=== PATIENT | female | born 1970 | race Caucasian/White ===

== ENCOUNTER 2017-11-18 11:20 | Day surgery (SDC) | payer OTHER ==
[2017-11-18] MEDS ORDERED: Ringers Lactate 1,000 ML IV ONE (11:38)
[2017-11-18] MEDS ORDERED: MIDAZOLAM HCL 2 MG/2 ML INJ ONE (12:34)
[2017-11-18] MEDS ORDERED: LIDOCAINE 1% MPF 5 ML VIAL ONE (12:34)
[2017-11-18] MEDS ORDERED: PROPOFOL 200 MG/20 ML VIAL IV ONE (12:34)
[2017-11-18 13:30] VITALS: BP 124/54; TEMP 97.8; O2SAT 99
--- NOTE | 2017-11-19 00:28 | OP ---
Surgeon: Joe Pendleton MD Procedure Performed: Esophagogastroduodenoscopy with possible balloon dilation of the pyloric stenos is. Anesthesia: Monitored anesthesia care. Indication: Iron-deficiency anemia, dyspepsia, complexity high due to it being a therapeutic procedu re. Technique: After obtaining informed consent from the patient and explaining risks and complications which include, but are not limited to bleeding, infection, perforation, and anesthesia complication, the patient was placed in a left lateral position and sedation was given. From then on the scope was advanced into the mouth and carefully guided up till the fourth portion of the duodenum. After the completion of examination, all diagnostic and therapeutic maneuvers, the scope and equipment were wit hdrawn and procedure terminated in a safe manner. Findings: Esophagus: No gross lesion seen in the entire esophagus. Stomach: Multiple fundic type p olyps seen. These actually appeared to have enlarged from the last endoscopy. Some of them were ped unculated, given the anemia may require removal. However, due to the pyloric dilation, too high-risk maneuvers are not advisable. Biopsies taken from the polyps. Also biopsies taken from the gastric body and antrum. At the pyloric region stenosis was seen. This did not pose any difficulty for pass age of scope, through the scope balloon dilator was used and the pyloric stenosis was dilated from 1 1-12 to 13.5 mm while holding the pressure for 30 seconds at 13.5. After decompression, some heme wa s noted from the stenosis site indicating adequate dilation. Duodenum: The bulb, second, and third p ortion appeared normal. Small bowel biopsies taken to rule out celiac disease. Complications: None. Tolerance To Anesthesia: Excellent. Postoperative Diagnosis: 1.Multiple large gastric polyps. 2.Pyloric stenosis status post dilation. Plan: 1.Await pathology results. 2.We will consider stopping PPI and tapering it down. 3.Would also recommend repeating an endoscopy in a few weeks to start removing the polyps by lary lemus. 4.Follow up in the GI clinic in 2-3 weeks. US/MODL Voice ID: [id number] Report ID: [id number]
== END 2017-11-18 13:33 | disposition home or self-care (01) ==
LOC: OR 11:20
PROVIDERS: ATTEND Internal Medicine Gastroenterology
PROC: 0DB88ZX Excision of Small Intestine, Via Natural or Artificial Opening Endoscopic, Diagnostic (ICD-10-PCS; 2017-11-18)
PROC: 0D778ZZ Dilation of Stomach, Pylorus, Via Natural or Artificial Opening Endoscopic (ICD-10-PCS; 2017-11-18)
PROC: 0DB68ZX Excision of Stomach, Via Natural or Artificial Opening Endoscopic, Diagnostic (ICD-10-PCS; principal; 2017-11-18 12:30)
DX: K31.1 Adult hypertrophic pyloric stenosis (principal); K31.7 Polyp of stomach and duodenum; K29.50 Unspecified chronic gastritis without bleeding; D50.9 Iron deficiency anemia, unspecified; Z88.0 Allergy status to penicillin; Z88.1 Allergy status to other antibiotic agents
CPT/HCPCS: 82962; 88305; 88312; C1726; J2250

== ENCOUNTER 2017-12-16 09:48 | Day surgery (SDC) | payer OTHER ==
[2017-12-16] MEDS ORDERED: NA CHLORIDE 0.9% 1,000 ML ONE (09:54)
[2017-12-16] MEDS ORDERED: MIDAZOLAM HCL 2 MG/2 ML INJ ONE (11:10)
[2017-12-16] MEDS ORDERED: PROPOFOL 200 MG/20 ML VIAL IV ONE (11:10)
[2017-12-16 11:44] VITALS: TEMP 97.9
[2017-12-16 12:04] VITALS: BP 119/77; O2SAT 99
--- NOTE | 2017-12-16 12:14 | OP ---
Date of Procedure: 12/16/2017 Surgeon: Valery Sandoval MD A 47-year-old female. Procedure Performed: 1.Esophagogastroduodenoscopy. 2.Biopsy from duodenal polypoid lesion. Anesthesia: By Department of Anesthesia. Indication: Large gastric polyp, anemia, and suspected GI bleeding. Premedication: Per Anesthesia. Complexity: Moderate. Tolerance Of Sedation: Excellent. Procedure In Detail: The procedure, possible complications, and alternatives including, but not limi rodolfo to the possibility of bleeding, perforation, tear, infection, sepsis, need for surgery, need for blood transfusion, anesthesia related problems including rare fatality explained to the patient. Inf ormed consent was obtained. The patient was placed in left lateral position. Scope was inserted. E sophageal mucosa in the proximal, mid, and distal aspect appeared to be within normal range. EG junc tion is normal. In the stomach, numerous polyps were noted predominantly in the fundus. The polyps ranged from 0.5 c m to 1.5 cm. However no active or passive bleeding or no stigmata of direct or indirect bleeding not ed anywhere in the stomach. These polyps appeared to be hyperplastic and appears to be quite benign in nature. Also no heme was noted in the stomach. Repeated examination revealed the same finding. Duodenal, pyloric orifice, and duodenal bulb were intubated; however, in the duodenal bulb, there wer e 2 erythematous areas of polypoid lesion that has been biopsied. Again no active or passive bleedin g noted, just erythematous polyps. Duodenal angle, duodenal part 2 appeared to be within normal rang e. Having done the above procedure in a safe, diligent, and satisfactory manner, endoscope and rest of t he endoscopic accessories were removed. The patient's oropharyngeal area was cleaned out in a respec tful manner. The patient has been sent in excellent condition to postop recovery, from there to the floor. Impression: 1.Gastric polyp that does not show any direct or indirect evidence of bleeding. 2.Duodenal polyps that were erythematous have been biopsied. Plan: 1.We will order small bowel follow-through unless has been done. 2.If small bowel follow-through is negative, capsule endoscopy will be ordered provided colonoscopy is negative. 3.She may benefit from a proton pump inhibitor therapy on a chronic basis. 4.Follow up in office with biopsy. Complications: None. The patient tolerated the procedure well. Disposition: After full recovery under anesthesia. She has been sent home. CYNTHIA/SAUL Voice ID: [id number] Report ID: [id number]
== END 2017-12-16 12:11 | disposition home health service (06) ==
LOC: OR 09:48
PROVIDERS: ATTEND Internal Medicine Gastroenterology
PROC: 0DB98ZX Excision of Duodenum, Via Natural or Artificial Opening Endoscopic, Diagnostic (ICD-10-PCS; principal; 2017-12-16 12:00)
DX: K31.7 Polyp of stomach and duodenum (principal); D50.9 Iron deficiency anemia, unspecified; K21.9 Gastro-esophageal reflux disease without esophagitis; I10 Essential (primary) hypertension; E11.9 Type 2 diabetes mellitus without complications; E07.9 Disorder of thyroid, unspecified; M19.90 Unspecified osteoarthritis, unspecified site; Z88.0 Allergy status to penicillin; Z88.1 Allergy status to other antibiotic agents
CPT/HCPCS: 82962; 88305; J2250; J7030

== ENCOUNTER 2018-03-24 10:55 | Day surgery (SDC) | payer OTHER ==
[2018-03-24] MEDS ORDERED: NA CHLORIDE 0.9% 1,000 ML ONE (11:48)
[2018-03-24 11:54] VITALS: O2SAT 100
[2018-03-24] MEDS ORDERED: MIDAZOLAM HCL 2 MG/2 ML INJ ONE (12:35)
[2018-03-24] MEDS ORDERED: PROPOFOL 200 MG/20 ML VIAL IV ONE ×2 (13:36)
[2018-03-24] MEDS ORDERED: LIDOCAINE 1% MPF 5 ML VIAL ONE (13:36)
[2018-03-24 14:31] VITALS: BP 121/55; TEMP 97.2
--- NOTE | 2018-03-25 00:37 | OP ---
Surgeon: Joe Pendleton MD Procedure To Be Performed: Esophagogastroduodenoscopy. Performing Physician: Joe Pendleton M.D. 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 Plan For Anesthesia: Monitored anesthesia care. Complexity: High due to probable therapeutic procedure. Technique: After obtaining informed consent from the patient and explaining risks and complications which include, but are not limited to bleeding, infection, perforation, and anesthesia complication, the patient was placed in a left lateral position and sedation was given. From then on, the scope wa s advanced into the mouth and carefully guided up until the fourth portion of the duodenum. After th e completion of examination and all therapeutic maneuvers, the scope and equipment were withdrawn, an d procedure terminated in a safe manner. Findings: Esophagus, no gross lesion seen in the entire esophagus. Stomach, numerous polyps which w ere fundic gland type were seen in the body. These range from size [address] up to 1.5 cm. T he largest 2 were identified and were resected with snare completely. Duodenum and the bulb, a few s mall AVMs were seen, also a small AVM seen in the second portion of the duodenum. These were ablated with APC. Complications: None. Tolerance To Anesthesia: Excellent. Postoperative Diagnoses: Gastric polyps, duodenal arteriovenous malformations, mild pyloric stenosis that did not require any dilation at this time. Plan: 1.Await pathology results. 2.May benefit from staged polypectomy in 6 to 8 weeks. We will see how her anemia responds. Follow up in the GI clinic. US/MODL Voice ID: [id number] Report ID: [id number]
== END 2018-03-24 14:44 | disposition home or self-care (01) ==
LOC: OR 10:55
PROVIDERS: ATTEND Internal Medicine Gastroenterology
PROC: 0D598ZZ Destruction of Duodenum, Via Natural or Artificial Opening Endoscopic (ICD-10-PCS; 2018-03-24)
PROC: 0DB68ZX Excision of Stomach, Via Natural or Artificial Opening Endoscopic, Diagnostic (ICD-10-PCS; principal; 2018-03-24 13:15)
DX: R10.32 Left lower quadrant pain (principal); K64.8 Other hemorrhoids; K31.1 Adult hypertrophic pyloric stenosis; D50.9 Iron deficiency anemia, unspecified; K31.819 Angiodysplasia of stomach and duodenum without bleeding; E11.9 Type 2 diabetes mellitus without complications; E03.9 Hypothyroidism, unspecified; Z88.1 Allergy status to other antibiotic agents; Z88.0 Allergy status to penicillin; E66.01 Morbid (severe) obesity due to excess calories; Z68.42 Body mass index [BMI] 45.0-49.9, adult; M54.9 Dorsalgia, unspecified; G89.29 Other chronic pain; K31.7 Polyp of stomach and duodenum
CPT/HCPCS: 82962; 88305; J2250; J7030

== ENCOUNTER 2019-05-29 07:18 | Emergency (ER) | payer OTHER ==
[2019-05-29] MEDS ORDERED: ONDANSETRON 4 MG/2 ML VIAL ONE (07:44)
[2019-05-29] MEDS ORDERED: DICYCLOMINE HCL 10 MG CAP ONE (07:44)
[2019-05-29] MEDS ORDERED: NA CHLORIDE 0.9% 1,000 ML ONE (07:45)
[2019-05-29 08:15] LABS: Absolute Lymphocytes (CBC) 0.5 K/uL (0.7-4.9); Basophils % 0.2 % (0-1.3); Lymphocytes % 6.4 % (15.3-44.8); MPV 9.1 fL (7.6-11.3); RBC Red Blood Cell Count 5.23 M/uL (3.86-4.86)
[2019-05-29 08:20] LABS: Albumin 3.5 g/dL (3.4-5.0); Bilirubin Direct 0.2 mg/dL (0-0.2); Bilirubin Total 0.6 mg/dL (0.2-1.0); Potassium 3.3 mmol/L (3.5-5.1); Protein, Total 7.2 g/dL (6.4-8.2)
[2019-05-29] MEDS ORDERED: MORPHINE 4 MG/ML SYR ONE (08:30)
[2019-05-29] MEDS ORDERED: PANTOPRAZOLE 40 MG INJ ONE (08:30)
[2019-05-29 09:08] LABS: Blood Morphology Comment NOT SEEN (NOT SEEN); Platelet Estimate ADEQ
--- NOTE | 2019-05-29 09:15 | RAD REPORT ---
EXAM DESCRIPTION: CT - Abdomen Pelvis W Contrast - 05/29/2019 8:47 am CLINICAL HISTORY: Abdominal pain COMPARISON: 2013 TECHNIQUE: Computed axial tomography of the abdomen pelvis was obtained. 100 cc Isovue-300 was admin istered intravenously. Oral contrast was not requested which limits evaluation of bowel. All CT scans are performed using dose optimization technique as appropriate and may include automated exposure control or mA/KV adjustment according to patient size. FINDINGS: Mild fatty liver Cholecystectomy Spleen, pancreas, adrenal and kidneys appear unremarkable. There is no evidence of diverticulitis. Normal appendix Tiny umbilical hernia. The wall of several loops of jejunum appear mildly thickened Spondylosis involves lumbar spine IMPRESSION: Mild thickening of the wall of several loops of jejunum may indicate an enteritis
--- NOTE | 2019-05-29 09:33 | EDPHYS ---
Physician Documentation [facility] Name: Staci Paulino Age: 48 yrs Sex: Female : 1970 Arrival Date: 05/29/2019 Time: 07:20 Bed 6 Private MD: Morgan Cornelius V ED Physician Farhat Isaacs HPI: 05/29 07:35 This 48 yrs old Female presents to ER via Unassigned with complaints of kb Abdominal Pain, Vomiting/Diarrhea. 07:35 The patient presents with abdominal pain in the upper abdomen. Onset: The kb symptoms/episode began/occurred 2 day(s) ago. The symptoms do not radiate. Associated signs and symptoms: Pertinent positives: nausea, vomiting, and diarrhea, Pertinent negatives: constipation, fever. The symptoms are described as constant. Modifying factors: The symptoms are alleviated by nothing, the symptoms are aggravated by nothing. Severity of pain: At its worst the pain was moderate in the emergency department the pain is unchanged. The patient has not experienced similar symptoms in the past. The patient has not recently seen a physician. Pt reports upper abd pain that started at midnight on Tuesday night, then n/v/d started at 0600 yesterday. States vomiting stopped at 1630 yesterday, but diarrhea continues as well as upper abd pain. . Historical: - Allergies: 07:49 PENICILLINS; ss 07:49 Keflex; ss 07:49 Biaxin; ss - Home Meds: 07:49 levothyroxine 112 mcg tab 1 tab once daily [Active]; spironolactone 100 mg Oral tab 1 ss tab once daily [Active]; carvedilol 6.25 mg oral tab 1 tab every 12 hours [Active]; topiramate 100 mg oral tab 1 tab 2 times per day [Active]; metformin 1,000 mg Oral tab 1 tab 2 times per day [Active]; Iron FE 45 mg [Active]; escitalopram oxalate 10 mg oral tab 1 tab once daily [Active]; esomeprazole magnesium 40 mg oral cpDR 1 cap once daily [Active]; Curaphen Herbal Pain medicine [Active]; Oseto bi-flex [Active]; Krill Oil [Active]; CoQ10 [Active]; Carafate 1 G PRN QID [Active]; - PMHx: 07:49 PCOS; Hypothyroidism; Hypertension; GERD; Hirsutism; ss - PSHx: 07:49 Cholecystectomy; lap band placed and removed; ss - Immunization history:: Adult Immunizations up to date. - Social history:: Smoking status: Patient/guardian denies using tobacco. - Ebola Screening: : Patient denies exposure to infectious person Patient denies travel to an Ebola-affected area in the 21 days before illness onset. ROS: 07:34 Constitutional: Negative for fever, chills, and weight loss, ENT: Negative for injury, kb pain, and discharge, Neck: Negative for injury, pain, and swelling, Cardiovascular: Negative for chest pain, palpitations, and edema, Respiratory: Negative for shortness of breath, cough, wheezing, and pleuritic chest pain, Back: Negative for injury and pain, : Negative for injury, bleeding, discharge, and swelling, MS/Extremity: Negative for injury and deformity, Skin: Negative for injury, rash, and discoloration, Neuro: Negative for headache, weakness, numbness, tingling, and seizure. 07:34 Abdomen/GI: Positive for abdominal pain, nausea, vomiting, and diarrhea, Negative for constipation, abdominal cramps, abdominal distension, anorexia. Exam: 07:34 Constitutional: This is a well developed, well nourished patient who is awake, alert, kb and in no acute distress. Head/Face: Normocephalic, atraumatic. Neck: Trachea midline, no thyromegaly or masses palpated, and no cervical lymphadenopathy. Supple, full range of motion without nuchal rigidity, or vertebral point tenderness. No Meningismus. Chest/axilla: Normal chest wall appearance and motion. Nontender with no deformity. No lesions are appreciated. Cardiovascular: Regular rate and rhythm with a normal S1 and S2. No gallops, murmurs, or rubs. Normal PMI, no JVD. No pulse deficits. Respiratory: Lungs have equal breath sounds bilaterally, clear to auscultation and percussion. No rales, rhonchi or wheezes noted. No increased work of breathing, no retractions or nasal flaring. Back: No spinal tenderness. No costovertebral tenderness. Full range of motion. Skin: Warm, dry with normal turgor. Normal color with no rashes, no lesions, and no evidence of cellulitis. MS/ Extremity: Pulses equal, no cyanosis. Neurovascular intact. Full, normal range of motion. Neuro: Awake and alert, GCS 15, oriented to person, place, time, and situation. Cranial nerves II-XII grossly intact. Motor strength 5/5 in all extremities. Sensory grossly intact. Cerebellar exam normal. Normal gait. 07:34 Abdomen/GI: Inspection: obese Bowel sounds: normal, in all quadrants, Palpation: soft, in all quadrants, mild abdominal tenderness, in the epigastric area and right upper quadrant. Vital Signs: 07:35 BP 138 / 92; Pulse 82; Resp 18; Temp 97.8(O); Pulse Ox 97% on R/A; Weight 115.67 kg; ss Height 4 ft. 11 in. (149.86 cm); Pain 4/10; 08:31 BP 113 / 66; Pulse 66; Resp 16; Pulse Ox 99% ; sv 07:35 Body Mass Index 51.50 (115.67 kg, 149.86 cm) ss MDM: 07:27 Patient medically screened. kb 07:34 Data reviewed: vital signs, nurses notes. Data interpreted: Pulse oximetry: on room air kb is 100 %. Interpretation: normal. 09:30 Counseling: I had a detailed discussion with the patient and/or guardian regarding: the kb historical points, exam findings, and any diagnostic results supporting the discharge/admit diagnosis, lab results, radiology results, the need for outpatient follow up, a family practitioner, to return to the emergency department if symptoms worsen or persist or if there are any questions or concerns that arise at home. 05/29 07:33 Order name: Basic Metabolic Panel; Complete Time: 08:22 kb 05/29 07:33 Order name: CBC with Diff; Complete Time: 09:19 kb 05/29 07:33 Order name: Hepatic Function; Complete Time: 08:22 kb 05/29 07:33 Order name: Lipase; Complete Time: 08:22 kb 05/29 08:28 Order name: CT Abd/Pelvis - IV Contrast Only; Complete Time: 09:20 kb 05/29 09:09 Order name: Manual Differential; Complete Time: 09:19 EDMS 05/29 07:33 Order name: IV Saline Lock; Complete Time: 07:49 kb 05/29 07:33 Order name: Labs collected and sent; Complete Time: 07:49 kb Administered Medications: 07:48 Drug: NS 0.9% 1000 ml Route: IV; Rate: 1000 ml; Site: right antecubital; sv 09:48 Follow up: Response: No adverse reaction; IV Status: Completed infusion; IV Intake: sv 600ml 07:48 Drug: Zofran 4 mg Route: IVP; Site: right antecubital; sv 08:16 Follow up: Response: No adverse reaction; Marked relief of symptoms; Nausea is decreasedsv 08:16 Drug: Bentyl 20 mg Route: PO; sv 08:37 Follow up: Response: No adverse reaction sv 08:35 Drug: ProTONIX 40 mg Route: IVP; Site: right antecubital; sv 09:30 Follow up: Response: No adverse reaction sv 08:37 Drug: morphine 4 mg {Note: RASS1.} Route: IVP; Site: right antecubital; sv 09:30 Follow up: Response: No adverse reaction; RASS: Alert and Calm (0) sv 09:48 Drug: Potassium Chloride 20 mEq Route: PO; sv 10:47 Follow up: Response: No adverse reaction; Medication administered at discharge. sv Disposition: 05/30 07:15 Co-signature as Attending Physician, Farhat Isaacs MD I agree with the assessment and kdr plan of care. Disposition: 05/29/19 09:31 Discharged to Home. Impression: Nausea and vomiting, Upper abdominal pain, unspecified, Diarrhea, unspecified. - Condition is Stable. - Discharge Instructions: Food Choices to Help Relieve Diarrhea, Adult, Viral Gastroenteritis, Adult, [id number]. - Prescriptions for Bentyl 20 mg Oral Tablet - take 1 tablet by ORAL route every 6 hours As needed; 20 tablet. Zofran 4 mg Oral Tablet - take 1 tablet by ORAL route every 6 hours As needed; 20 tablet. - Medication Reconciliation Form, Thank You Letter, Antibiotic Education, Work release form form. - Follow up: Emergency Department; When: As needed; Reason: Worsening of condition. Follow up: Morgan Cornelius MD; When: 2 - 3 days; Reason: Recheck today's complaints, Continuance of care, Re-evaluation by your physician. Signatures: Dispatcher [employer] Felicia Tejeda, EDER YANES-Alyssia Benavides RN RN sv Rittger, Farhat, MD MD kdr Smirch, Taina, RN RN ss Corrections: (The following items were deleted from the chart) 11 09:48 09:31 05/29/2019 09:31 Discharged to Home. Impression: Nausea and vomiting; Upper sv abdominal pain, unspecified; Diarrhea, unspecified. Condition is Stable. Forms are Medication Reconciliation Form, Thank You Letter, Antibiotic Education, Prescription Opioid Use. Follow up: Emergency Department; When: As needed; Reason: Worsening of condition. Follow up: Morgan Cornelius; When: 2 - 3 days; Reason: Recheck today's complaints, Continuance of care, Re-evaluation by your physician. kb
--- NOTE | 2019-05-29 09:33 | ER ---
Nurse's Notes [facility] Name: Staci Paulino Age: 48 yrs Sex: Female : 1970 Arrival Date: 05/29/2019 Time: 07:20 Bed 6 Private MD: Morgan Cornelius V Diagnosis: Nausea and vomiting;Upper abdominal pain, unspecified;Diarrhea, unspecified Presentation: 05/29 07:35 Presenting complaint: Presenting complaint: Patient states: N/V/D and abd pain that ss began 1.5 days ago. 07:36 Transition of care: patient was not received from another setting of care. Onset of ss symptoms was May 27, 2019. Risk Assessment: Do you want to hurt yourself or someone else? Patient reports no desire to harm self or others. Initial Sepsis Screen: Does the patient meet any 2 criteria? No. Patient's initial sepsis screen is negative. Does the patient have a suspected source of infection? No. Patient's initial sepsis screen is negative. Care prior to arrival: None. 07:36 Method Of Arrival: Ambulatory ss 07:36 Acuity: DIEUDONNE 3 ss Historical: - Allergies: 07:49 PENICILLINS; ss 07:49 Keflex; ss 07:49 Biaxin; ss - Home Meds: 07:49 levothyroxine 112 mcg tab 1 tab once daily [Active]; spironolactone 100 mg Oral tab 1 ss tab once daily [Active]; carvedilol 6.25 mg oral tab 1 tab every 12 hours [Active]; topiramate 100 mg oral tab 1 tab 2 times per day [Active]; metformin 1,000 mg Oral tab 1 tab 2 times per day [Active]; Iron FE 45 mg [Active]; escitalopram oxalate 10 mg oral tab 1 tab once daily [Active]; esomeprazole magnesium 40 mg oral cpDR 1 cap once daily [Active]; Curaphen Herbal Pain medicine [Active]; Oseto bi-flex [Active]; Krill Oil [Active]; CoQ10 [Active]; Carafate 1 G PRN QID [Active]; - PMHx: 07:49 PCOS; Hypothyroidism; Hypertension; GERD; Hirsutism; ss - PSHx: 07:49 Cholecystectomy; lap band placed and removed; ss - Immunization history:: Adult Immunizations up to date. - Social history:: Smoking status: Patient/guardian denies using tobacco. - Ebola Screening: : Patient denies exposure to infectious person Patient denies travel to an Ebola-affected area in the 21 days before illness onset. Screenin:27 Abuse screen: Denies threats or abuse. Denies injuries from another. Nutritional sv screening: No deficits noted. Tuberculosis screening: No symptoms or risk factors identified. Fall Risk None identified. Assessment: 07:30 General: Appears in no apparent distress. uncomfortable, well developed, Behavior is sv calm, cooperative, appropriate for age. Pain: Complains of pain in right upper quadrant and epigastric area Pain currently is 4 out of 10 on a pain scale. Pain began 2-3 days ago. Is continuous. Neuro: Level of Consciousness is awake, alert, obeys commands, Oriented to person, place, time, situation, Gait is steady. Respiratory: Airway is patent Respiratory effort is even, unlabored, Respiratory pattern is regular, symmetrical. GI: Abdomen is obese, Abd is soft X 4 quads Abdomen is tender to palpation in right upper quadrant and epigastric area. GI: Reports diarrhea, nausea, vomiting. Derm: Skin is pink, warm \T\ dry. Reports feeling clammy at times. 08:16 Reassessment: Patient appears in no apparent distress at this time. Patient and/or sv family updated on plan of care and expected duration. Pain level reassessed. Patient is alert, oriented x 3, equal unlabored respirations, skin warm/dry/pink. GI: Reports lower abdominal pain, Patient currently denies nausea. 09:48 Reassessment: Patient appears in no apparent distress at this time. Patient and/or sv family updated on plan of care and expected duration. Pain level reassessed. Patient is alert, oriented x 3, equal unlabored respirations, skin warm/dry/pink. Patient states feeling better. Patient states symptoms have improved. Vital Signs: 07:35 BP 138 / 92; Pulse 82; Resp 18; Temp 97.8(O); Pulse Ox 97% on R/A; Weight 115.67 kg; Height 4 ft. 11 in. (149.86 cm); Pain 4/10; 08:31 BP 113 / 66; Pulse 66; Resp 16; Pulse Ox 99% ; sv 07:35 Body Mass Index 51.50 (115.67 kg, 149.86 cm) ED Course: 07:20 Patient arrived in ED. rg4 07:20 Morgan Cornelius MD is Private Physician. rg4 07:27 Alyssia Young RN is Primary Nurse. sv 07:27 Felicia Mccormick [facility]-C [facility]. kb 07:27 Farhat Isaacs MD is Attending Physician. kb 07:27 Arm band placed on. sv 07:27 Patient has correct armband on for positive identification. Bed in low position. Call sv light in reach. Door closed. Head of bed elevated. 07:36 Triage completed. ss 07:40 Inserted saline lock: 22 gauge in right antecubital area, using aseptic technique. sv Blood collected. Flushed right antecubital with 5 ml normal saline. 08:16 Awaiting lab results. sv 08:48 CT Abd/Pelvis - IV Contrast Only In Process Unspecified. EDMS 08:[address]. sv 09:13 Awaiting radiology results. sv 09:30 Morgan Cornelius MD is Referral Physician. kb 09:48 No provider procedures requiring assistance completed. IV discontinued, intact, sv bleeding controlled, No redness/swelling at site. Pressure dressing applied. Administered Medications: 07:48 Drug: NS 0.9% 1000 ml Route: IV; Rate: 1000 ml; Site: right antecubital; sv 09:48 Follow up: Response: No adverse reaction; IV Status: Completed infusion; IV Intake: sv 600ml 07:48 Drug: Zofran 4 mg Route: IVP; Site: right antecubital; sv 08:16 Follow up: Response: No adverse reaction; Marked relief of symptoms; Nausea is decreasedsv 08:16 Drug: Bentyl 20 mg Route: PO; sv 08:37 Follow up: Response: No adverse reaction sv 08:35 Drug: ProTONIX 40 mg Route: IVP; Site: right antecubital; sv 09:30 Follow up: Response: No adverse reaction sv 08:37 Drug: morphine 4 mg {Note: RASS1.} Route: IVP; Site: right antecubital; sv 09:30 Follow up: Response: No adverse reaction; RASS: Alert and Calm (0) sv 09:48 Drug: Potassium Chloride 20 mEq Route: PO; sv 10:47 Follow up: Response: No adverse reaction; Medication administered at discharge. sv Intake: 09:48 IV: 600ml; Total: 600ml. sv Outcome: 09:31 Discharge ordered by MD. germain 09:48 Patient left the ED. sv 09:48 Discharged to home ambulatory. sv 09:48 Condition: stable 09:48 Discharge instructions given to patient, Instructed on discharge instructions, follow up and referral plans. medication usage, Demonstrated understanding of instructions, follow-up care, medications, Prescriptions given X 2. Signatures: Dispatcher [employer] EDFelicia Georges, IMAGER-C IMAGER-Alyssia Benavides, RN RN Taina Barnes RN RN Michelle Rojas rg4 Corrections: (The following items were deleted from the chart) 07:36 07:35 Presenting complaint: [facility] 10:47 09:48 Response: Medication administered at discharge. sv sv
[2019-05-29] MEDS ORDERED: POTASSIUM CL SA 10 MEQ TAB PO ONE (09:41)
[2019-05-29 09:57] VITALS: TEMP 97.8
[2019-05-29 09:58] VITALS: BP 113/66; O2SAT 99
== END 2019-05-29 09:48 | disposition home or self-care (01) ==
LOC: ER 07:18
DX: R11.2 Nausea with vomiting, unspecified (principal); R10.10 Upper abdominal pain, unspecified; R19.7 Diarrhea, unspecified; Z88.0 Allergy status to penicillin; Z88.1 Allergy status to other antibiotic agents; E03.9 Hypothyroidism, unspecified; I10 Essential (primary) hypertension; K21.9 Gastro-esophageal reflux disease without esophagitis
CPT/HCPCS: 96361; 85025; 80048; 36415; 80076; 83690; 74177; 96375; 96374; 99284; Q9967; C9113; J7030; J2405

== ENCOUNTER 2020-11-04 09:16 | Day surgery (SDC) | payer OTHER ==
[2020-11-04] MEDS ORDERED: NA CHLORIDE 0.9% 1,000 ML ONE (10:04)
[2020-11-04] MEDS ORDERED: MIDAZOLAM HCL 2 MG/2 ML INJ ONE (12:01)
[2020-11-04] MEDS ORDERED: FENTANYL CITR 100 MCG/2 ML ONE (12:09)
[2020-11-04] MEDS ORDERED: propofoL 200 MG/20 ML VIAL IV ONE (12:09)
[2020-11-04] MEDS ORDERED: LIDOCAINE 1% MPF 5 ML VIAL ONE (12:09)
[2020-11-04] MEDS ORDERED: KETOROLAC 30 MG/ML INJ ONE (12:22)
[2020-11-04] MEDS ORDERED: dexAMETHasone 10 MG/ML VIAL ONE (12:22)
[2020-11-04] MEDS ORDERED: ONDANSETRON 4 MG/2 ML VIAL ONE (12:26)
[2020-11-04] MEDS: MORPHINE 4 MG/ML SYR ONE ×2 (12:45→12:50)
[2020-11-04] MEDS: MEPERIDINE HCL 25 MG/ML SYR ONE ×2 (12:54→12:59)
[2020-11-04] MEDS ORDERED: IBUPROFEN 400 MG TAB PO ONE (14:09)
[2020-11-04] MEDS ORDERED: IBUPROFEN 400 MG TAB ONE ×2 (14:24→14:26)
[2020-11-04] MEDS ORDERED: IBUPROFEN 200 MG TAB PO ONE (14:24)
[2020-11-04 14:31] VITALS: TEMP 97.8; O2SAT 97
[2020-11-04 14:44] VITALS: BP 105/45
--- NOTE | 2020-11-04 22:29 | OP ---
Date of Procedure: 11/04/2020 Surgeon: Kristin Fritz MD Turpentiner: None. Preoperative Diagnosis: Postmenopausal bleeding. Postoperative Diagnosis: Postmenopausal bleeding. Procedure Performed: Hysteroscopy, dilatation and curettage. Complications: No complications. Drains: No drains. Condition: Stable. Specimens: Endometrial curettings taken with a curette and the Pipelle. Findings: Endometrial cavity anteflexed, cervix stenotic and dilated appropriately, anterior canal c uretted adequately. The canal was empty. No abnormalities noted in the endometrial cavity. Indications: The patient is a 50-year-old, LMP in 2012, presented with postmenopausal bleeding and h er FSH was over 50. She has risk factors for endometrial atypia or malignancy such as high BMI, so s he was consented for cavity visualization and sampling of the endometrial cavity. Consented and brou ght to the OR. She had a transvaginal ultrasound prior to that. Description Of Procedure: After informed consent was verified, she was taken back to OR, placed in a supine fashion on the table. General anesthesia was given with LMA. The patient was placed in a do rsal lithotomy position. Speculum was placed to expose the cervix. Prep x3 with Betadine was done. Anterior lip was grasped with 2 Allis clamps. The external os was slightly more opened up with the help of tip of a hemostat. Then dilated to 12-[place]. Diagnostic SlimLine hysteroscope was introduc ed through the cervical canal. Anterior lip had to be regrasped with a single-tooth tenaculum as All is clamps were making it difficult for the entry of the scope. Once the scope was placed into the ut erine cavity, carefully cavity was visualized. The uterus was sounded to 6.5 cm under direct vision and so made sure that the dilators did not go in their pass. Subsequently dilated to 16-[place]. The n curettage was performed. As there was very scant endometrial curettings retrieved, I took an endom etrial biopsy. Pipelle was introduced into the uterus to suck the specimen that was loose. Once earl quate suction was performed of the cavity, this was handed out for permanent pathology. All instrume nts were removed. Instrument, needle, and sponge counts were correct. The patient was recovered fro m anesthesia and taken to PACU in a stable condition. She has a 1 week followup appointment with me for pathology check. SK/SAUL Voice ID: [id number] Report ID: [id number]
== END 2020-11-04 14:58 | disposition home or self-care (01) ==
LOC: OR 09:16
PROVIDERS: ATTEND Obstetrics & Gynecology
PROC: 0UDB8ZX Extraction of Endometrium, Via Natural or Artificial Opening Endoscopic, Diagnostic (ICD-10-PCS; principal; 2020-11-04 10:30)
DX: N95.0 Postmenopausal bleeding (principal); Z20.822 Contact with and (suspected) exposure to COVID-19
CPT/HCPCS: 82947 ×2; 88305; 58558; U0002; J2704; J2250; J3010; J1100; J2175; J7030; J2405

== ENCOUNTER 2023-05-31 07:53 | Day surgery (SDC) | payer BC ==
[2023-05-31] MEDS ORDERED: NA CHLORIDE 0.9% 1,000 ML ONE (08:29)
[2023-05-31] MEDS ORDERED: propofoL 200 MG/20 ML VIAL IV ONE (09:40)
[2023-05-31] MEDS ORDERED: LIDOCAINE 1% MPF 5 ML VIAL ONE (09:40)
[2023-05-31 13:58] VITALS: O2SAT 100
[2023-05-31 14:05] VITALS: BP 120/68; TEMP 97.6
== END 2023-05-31 10:32 | disposition home or self-care (01) ==
LOC: OR 07:53
PROVIDERS: ATTEND Internal Medicine Gastroenterology
PROC: 0DB88ZX Excision of Small Intestine, Via Natural or Artificial Opening Endoscopic, Diagnostic (ICD-10-PCS; 2023-05-31)
PROC: 0DB78ZX Excision of Stomach, Pylorus, Via Natural or Artificial Opening Endoscopic, Diagnostic (ICD-10-PCS; 2023-05-31)
PROC: 0DB68ZX Excision of Stomach, Via Natural or Artificial Opening Endoscopic, Diagnostic (ICD-10-PCS; principal; 2023-05-31 09:15)
DX: D50.9 Iron deficiency anemia, unspecified (principal); K31.7 Polyp of stomach and duodenum; K21.9 Gastro-esophageal reflux disease without esophagitis; K31.819 Angiodysplasia of stomach and duodenum without bleeding; K29.50 Unspecified chronic gastritis without bleeding
CPT/HCPCS: 93005; 88312; 82947; 88305; 43239; J2704; J2001; J7030

== ENCOUNTER 2023-06-13 07:06 | Day surgery (SDC) | payer BC ==
[2023-06-13] MEDS: NA CHLORIDE 0.9% 1,000 ML ONE ×2 (07:55→08:44)
[2023-06-13] MEDS ORDERED: LIDOCAINE 1% MPF 5 ML VIAL ONE (08:22)
[2023-06-13] MEDS ORDERED: propofoL 200 MG/20 ML VIAL IV ONE (08:22)
[2023-06-13 09:49] VITALS: TEMP 98.8; O2SAT 99
[2023-06-13 09:50] VITALS: BP 127/61
== END 2023-06-13 10:00 | disposition home or self-care (01) ==
LOC: OR 07:06
PROVIDERS: ATTEND Internal Medicine Gastroenterology
PROC: 0DJD8ZZ Inspection of Lower Intestinal Tract, Via Natural or Artificial Opening Endoscopic (ICD-10-PCS; principal; 2023-06-13 08:30)
DX: Z12.11 Encounter for screening for malignant neoplasm of colon (principal); Z86.010 Personal history of colon polyps; D50.9 Iron deficiency anemia, unspecified; K64.8 Other hemorrhoids; K64.4 Residual hemorrhoidal skin tags; K21.9 Gastro-esophageal reflux disease without esophagitis
CPT/HCPCS: 82947; 45378; J2704; J2001; J7030